=== PATIENT | male | born 2000 ===

== ENCOUNTER 2025-02-28 08:19 | Outpatient (CLI) | payer OTHER, SELFPAY | END 2025-02-28 08:20 | disposition home or self-care (01) | PROVIDERS: Visit Provider Nurse Practitioner Family | DX: Z51.81 Encounter for therapeutic drug level monitoring (principal); Z13.818 Encounter for screening for other digestive system disorders; Z13.1 Encounter for screening for diabetes mellitus | CPT/HCPCS: 80061; 80076; 82947 ==